=== PATIENT | male | born 1990 | race Caucasian/White ===

== ENCOUNTER 2016-12-25 14:25 | Inpatient (IN) | payer OTHER ==
--- NOTE | ~2016-12-25 | HP ---
Unit #: [id number] #: [id number] Patient: ARVIN DUNNE [id number] [address] [place], [place] [address] [id number] MR#: [id number] NAME: ARVIN DUNNE ROOM: 241 Age: 26 Sex: M Admission Date: 12/25/2016 : 1990 Attending Physician: Ngozi Luke M.D. Primary Care Physician: No Primary Care Physician HISTORY AND PHYSICAL CHIEF COMPLAINT Low back pain from sleeping on futon. HPI The patient is a 26-year-old male with no significant past medical history who presented to the emergency department for evaluation of the above. The patient states that he has had a 1-2-month history of worsening low back pain. He states the pain is in his lower back. He describes it as throbbing. It is exacerbated by movement and standing. There are no alleviating factors. He denies any similar pain. He attributed the pain to "sleeping on futon." He denies any fever. He has had an occasional cough. He states that the pain also radiates to his abdomen. He has had associated vomiting. He reports 2-3 bouts of nonbloody emesis within the past 24 hours. He has had constipation, although his last bowel movement was today. He also reports an approximate 25-pound weight loss over the past three months. In the emergency department, a CT of the abdomen and pelvis was done and showed a large retroperitoneal mass concerning for malignancy. He is being admitted to [facility] for evaluation and further treatment. PAST MEDICAL HISTORY No hospitalizations. PAST SURGICAL HISTORY None. SOCIAL HISTORY The patient is currently living with a friend. He smokes a 1/2 pack of cigarettes daily. He also reports marijuana use. He works at [employer]. FAMILY HISTORY Notable for his mother dying at the age of 50 of bone malignancy. His dad has asthma. ALLERGIES No allergies are listed. HOME MEDICATIONS None. REVIEW OF SYSTEMS Unit #: [id number] #: [id number] Patient: ARVIN DUNNE A complete review of systems is negative, except as indicated in HPI. 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 The mass is intimately involved with the left psoas muscle. CT with contrast was recommended and done. The CT with contrast redemonstrated the mass. Mass effect upon the aorta, left kidney, and left renal artery was also noted. LABORATORY: Urinalysis notable for 2+ protein. Urine tox screen positive for marijuana. Comprehensive metabolic panel essentially normal. Lipase is 23. Complete blood count notable for white blood cell count of 11.4 and hemoglobin is 11.8. PHYSICAL EXAMINATION VITAL SIGNS: Temperature is 97.9, pulse 92, respirations 16, blood pressure 122/80, and oxygen saturation 100% on room air. GENERAL: The patient is a very pleasant, male who is awake and alert in no acute distress. HEENT: The head is atraumatic. Mucous membranes are moist. NECK: Supple. Trachea is midline. CARDIOVASCULAR: Regular rate and rhythm. LUNGS: Clear to auscultation bilaterally with no increased work of breathing. ABDOMEN: Soft. He is tender to palpation throughout. Bowel sounds are present in all four quadrants. EXTREMITIES: Nontender with no pedal edema. NEUROLOGIC: The patient is awake and alert. He follows commands. PSYCH: The patient is somewhat anxious, but cooperative. SKIN: Skin of examined areas is warm and dry. ASSESSMENT The patient is a 26-year-old male with: 1. Retroperitoneal mass concerning for malignancy, sarcoma versus lymphoma versus other. 2. Nausea and vomiting. 3. Weight loss. The patient reports about a 25-pound weight loss over the past 3 months. 4. Tobacco abuse. PLAN 1. Admit for observation to med/surg. 2. NPO after midnight for possible procedure. 3. Normal saline at 125 mL/hour. 4. P.R.N. Toradol. 5. P.R.N. Zofran. 6. Consult Dr. Coto regarding retroperitoneal mass. 7. TSH. 8. Repeat labs in the morning. 9. SCDs for DVT prophylaxis. 10. Additional workup and consultants based on above. Unit #: [id number] #: [id number] Patient: ARVIN DUNNE Dictated by Thao Louise TD: 12/26/2016 06:54 JOB #: [id number] HISTORY AND PHYSICAL Page 1 of 1 X Ngozi Luke MD HISTORY AND PHYSICAL
--- NOTE | ~2016-12-25 | DS ---
Unit #: [id number] #: [id number] Patient: ARVIN CHAND [id number] [address] [place], [place] [address] [id number] I MR#: [id number] NAME: ARVIN CHAND ROOM: 241 Age: 26 Sex: M Admission Date: 12/25/2016 : 1990 Discharge Date: 12/27/2016 Attending Physician: Dia Ferrera M.D. Primary Care Physician: No Primary Care Physician DISCHARGE SUMMARY PRINCIPAL DIAGNOSES 1. Left-sided retroperitoneal mass with pending pathology. 2. Bilateral noncalcified pulmonary nodules concerning for underlying metastatic disease. 3. Tobaccoism. 4. Marijuana use. 5. Normocytic anemia. 6. Mild protein malnutrition. CONSULTANTS Dr. Coto, Oncology. PROCEDURES 1. CT-guided needle biopsy of left retroperitoneal mass, again, pathology is pending. 2. CT of the chest with contrast on December 26, 2016, with noncalcified bilateral pulmonary nodules, the largest in the posterior medial left lower lobe measuring 11 mm. Air density seen in the posterior margin of left retroperitoneal mass consistent with recent biopsy. 3. CT of the abdomen and pelvis without contrast on December 25, 2016, with the large retroperitoneal mass still left of midline. 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 There is mass effect along the kidney, aorta and pancreas and involving the left psoas muscle. The mass displaces the aorta, left kidney, and again pancreas. 4. CT of the abdomen and pelvis with contrast on December 25, 2016, again with large left retroperitoneal mass with mass effect in the abdominal aorta. Malignant appearance is noted. CLINICAL HISTORY AND HOSPITAL COURSE Mr. Chand is a nice 26-year-old male who presents to the emergency department with complaints of back pain. This has been associated with weight loss. Please refer to the H and P for further details. The patient underwent CT scan of the abdomen and pelvis initially without and subsequently with contrast revealing a large left-sided retroperitoneal mass. Patient was admitted for further evaluation. Dr. Coto was consulted and patient underwent biopsy of the retroperitoneal mass. Official pathology is currently pending, but discussion with Dr. Coto indicates that this may represent a germ-cell tumor. Patient is going to have some further blood work in addition to a testicular ultrasound done later today, and subsequently will be discharged home for further evaluation. Unit #: [id number] #: [id number] Patient: ARVIN CHAND I will note, patient will undergo CT scan of the chest to evaluate for metastases which appear to be present. Again, treatment will depend on pathology. The patient will be discharged home today. DISCHARGE CONDITION Stable. DISCHARGE STATUS Discharged to home. DISCHARGE MEDICATIONS Ibuprofen 200 mg 3-4 tablets p.o. q.8 hours, p.r.n. for pain. DISCHARGE INSTRUCTIONS Patient is to refrain from any further tobacco use or marijuana use, and can follow a regular diet. Follow up with Dr. Coto next week. Dictated by... Dia Ferrera M.D. KIMI/sae TD: 12/27/2016 23:44 JOB #: [id number] DISCHARGE SUMMARY Page 1 of 1 X Dia Ferrera MD X DISCHARGE SUMMARY
--- NOTE | ~2016-12-25 | US115 ---
[facility] A Service of [facility] & [facility] RADIOLOGY TEXT RESULTS PATIENT: ARVIN DUNNE LOCATION: C2A 241-01 : [birth year] UNIT #: [id number] AGE: [address]: Dia Ferrera MD SEX: M ORDER DR: [id number] [facility] [address] [facility] [place], [place] [address] [id number] I MR#: [id number] Acc #: [id number] NAME: ARVIN DUNNE : 1990 SEX: M STUDY DATE/TIME: 12/27/2016 13:24 UNIT: C2A ROOM: 241 STUDY DESCRIPTION: US Scrotum and Contents Attending Physician: Dia Ferrera M.D. Ordering Physician: Miller Coto M.D. Primary Care Physician: No Primary Care Physician MEDICAL IMAGING REPORT This report is preliminary unless electronic signature is present EXAM Testicular ultrasound HISTORY This patient was found to have a large retroperitoneal mass on the left on December 25, 2016. He has had bilateral testicular pain for 2 days. TECHNIQUE Pérez-scale color Doppler and spectral Doppler waveform analysis was performed through the scrotum. FINDINGS Patient's right testicle is normal in appearance it is homogeneous in echotexture with exception of 2 hyperechoic areas which may reflect small calcifications. No suspicious testicular masses are seen. On the right normal color-Doppler flow is seen within the right testicle. Right epididymis is also normal in appearance. Patient's left testicle I think overall is somewhat heterogeneous in echotexture with a more focal area of decreased attenuation seen which measured up to 4.0 x 0.8 x 0.7 cm. Normal color-Doppler flow is seen within the left testicle. Some additional tiny hyperechoic areas are seen which may reflect some calcifications. I think the left epididymis is probably within normal limits. Patient may have a left sided varicocele but this is difficult to fully evaluate on the submitted images. IMPRESSION 1. Overall heterogeneous appearance to the left testicle with a focal area of decreased attenuation seen measuring up to 1.0 x 0.8 x 0.7 cm. 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 2. Right testicle appears unremarkable with the exception of perhaps two tiny microcalcifications. Normal color-Doppler flow is STS. [facility] A Service of [facility] & [facility] RADIOLOGY TEXT RESULTS PATIENT: ARVIN DUNNE LOCATION: [place] [address] : [birth year] UNIT #: [id number] AGE: [address]: Dia Ferrera MD SEX: M ORDER DR: seen within both testicles. Dictated by... Martha Cerda M.D. THIS IS AN ELECTRONICALLY VERIFIED REPORT Martha Cerda M.D. at 12/28/2016 5:54 PM AFF/rnr TD: 12/27/2016 16:31 JOB #: [id number] MEDICAL IMAGING REPORT Page 1 of 1 COPY
--- NOTE | ~2016-12-25 | CT2 ---
[facility] A Service of [facility] RADIOLOGY TEXT RESULTS PATIENT: ARVIN DUNNE LOCATION: [facility] 241- : 89 UNIT #: [id number] AGE: [address]: Dia Ferrera MD SEX: M ORDER DR: [id number] [facility] [address] [facility]. [place], [place] [address] [id number] I MR#: [id number] Acc #: [id number] NAME: ARIVN DUNNE : 1990 SEX: M STUDY DATE/TIME: 12/25/2016 17:38 UNIT: [facility] ROOM: 241 STUDY DESCRIPTION: CT Abd and Pelv W Cont Attending Physician: Ngozi Luke M.D. Ordering Physician: Kelle Aggarwal P.A.-C. MEDICAL IMAGING REPORT This report is preliminary unless electronic signature is present EXAM CT abdomen and pelvis with contrast INDICATIONS Abnormal finding diagnostic imaging of the abdomen. Retroperitoneal mass on unenhanced CT earlier today. Further characterization. TECHNIQUE Contrast-enhanced CT of the abdomen and pelvis. This CT exam was performed with one or more of the following radiation dose reduction techniques: automatic exposure control, adjustment of mA and/or kV according to patient size, and iterative reconstruction. COMPARISON Unenhanced CT from earlier on the same day. FINDINGS ABDOMEN WITH CONTRAST: The included lung bases clear. The liver and spleen are unremarkable. Right adrenal gland, pancreas and gallbladder unremarkable. The bowel loops are non-dilated. There is a large heterogeneously enhancing mass in the left retroperitoneum. The mass is positioned just below the level of the left renal artery which is elevated by the mass. Mass partially surrounds the aorta. The mass measures 7.9 x 8.2 cm. Thyroid mass effect on the abdominal aorta. There is superior elevation of the left renal artery which remains patent. There is involvement of the left renal vein. There is indistinctness of the mass in the left psoas muscle suspicious for involvement. The mass has some mass effect on the left kidney but no clear involvement. The mass is separate from the left adrenal gland. [facility] A Service of [facility] RADIOLOGY TEXT RESULTS PATIENT: ARVIN DUNNE LOCATION: A 241-01 : [birth year] UNIT #: [id number] AGE: [address]: Dia Ferrera MD SEX: M ORDER DR: PELVIS WITH CONTRAST: No pelvic mass or fluid. No aggressive appearing bone lesion. IMPRESSION 1. Large left retroperitoneal mass with mass effect on the abdominal aorta and mild mass effect on the left kidney. This has a malignant appearance and considerations include retroperitoneal sarcoma, as well as lymphoma. The mass elevates the left renal artery which remains patent but involvement is difficult to entirely exclude. There is involvement of the left renal vein, and probably involvement of the psoas muscle on the left. No clear involvement of the left adrenal gland. 2. No convincing evidence for distant metastatic disease in the abdomen or pelvis. Dictated by... Ruslan Albarran M.D. THIS IS AN ELECTRONICALLY VERIFIED REPORT Ruslan Albarran M.D. at 12/26/2016 2:30 PM EED/pcl TD: 12/25/2016 23:16 JOB #: [id number] MEDICAL IMAGING REPORT Page 1 of 1 COPY
--- NOTE | ~2016-12-25 | CT134 ---
[facility] A Service of [facility] RADIOLOGY TEXT RESULTS PATIENT: ARVIN DUNNE LOCATION: [facility] 241- : 89 UNIT #: [id number] AGE: [address]: Dia Ferrera MD SEX: M ORDER DR: [id number] [facility] [address] [facility]. [place], [place] [address] [id number] I MR#: [id number] Acc #: [id number] NAME: ARVIN DUNNE : 1990 SEX: M STUDY DATE/TIME: 12/26/2016 11:15 UNIT: [facility] ROOM: [facility] STUDY DESCRIPTION: CT Guide Attending Physician: Dia Ferrera M.D. Ordering Physician: Miller Coto M.D. Primary Care Physician: Primary Care Physician No MEDICAL IMAGING REPORT This report is preliminary unless electronic signature is present EXAM CT-guided retroperitoneal mass biopsy CLINICAL HISTORY Newly diagnosed retroperitoneal mass. PROCEDURE Informed consent was obtained from the patient. The skin site was selected with CT guidance and marked. Fentanyl and Versed were administered for IV conscious sedation with hemodynamic monitoring provided by the nursing staff throughout the procedure. Total sedation time approximately 15 minutes. Selected skin site was sterilely prepped and draped and locally anesthetized and in INRAD needle gun was used. Guide needle positioning was confirmed with CT and core specimens were obtained and sent both in formalin and Hanks solution for cytopathologic and flow cytometric evaluation. There were no immediate complications and the patient tolerated the procedure well. Prebiopsy images revealed persistent cortical enhancement of the left kidney. Review of the CT examination showed a subtle asymmetry and renal enhancement and compromise of the renal vein which is likely the leno of the abnormal density in the left renal cortex. IMPRESSION Successful CT-guided core biopsy of a left retroperitoneal mass without complication, conscious sedation as above. Prebiopsy images demonstrate persistent enhancement and/or density in the cortex of the left kidney, likely corresponding to left renal vein compromise and subtlely delayed left renal enhancement likely on that [facility] A Service [facility] RADIOLOGY TEXT RESULTS PATIENT: ARVIN DUNNE LOCATION: [facility] 241-01 : [birth year] UNIT #: [id number] AGE: [address]: Dia Ferrera MD SEX: M ORDER DR: basis demonstrated on the CT abdomen and pelvis of 12/25/2016. Dictated by... Dalton Morris M.D. THIS IS AN ELECTRONICALLY VERIFIED REPORT Dalton Morris M.D. at 12/28/2016 2:19 PM TEV/delphine TD: 12/26/2016 21:34 JOB #: [id number] MEDICAL IMAGING REPORT Page 1 of 1 COPY
--- NOTE | ~2016-12-25 | CT55 ---
[facility] A Service of [facility] & [facility] RADIOLOGY TEXT RESULTS PATIENT: ARVIN DUNNE LOCATION: C2A 241-01 : [birth year] UNIT #: [id number] AGE: [address]: Dia Ferrera MD SEX: M ORDER DR: [id number] [facility] [address] [facility]. [place], [place] [address] [id number] I MR#: [id number] Acc #: [id number] NAME: ARVIN DUNNE : 1990 SEX: M STUDY DATE/TIME: 12/26/2016 11:37 UNIT: [facility] ROOM: [facility] STUDY DESCRIPTION: CT Chest W Con Attending Physician: Dia Ferrera M.D. Ordering Physician: Miller Coto M.D. Primary Care Physician: No Primary Care Physician MEDICAL IMAGING REPORT This report is preliminary unless electronic signature is present EXAM CT chest with contrast, 12/26/2016. HISTORY 26-year-old male with retroperitoneal mass seen on CT abdomen and pelvis without contrast from 12/26/2016. Shortness of breath today for approximately [address] abdomen and pelvis with contrast 12/27/2015. CT-guided retroperitoneal mass biopsy 12/26/2016. PROCEDURE 5-mm axial images through the chest after IV contrast administration. Sagittal and coronal reformatted images were obtained. This CT exam was performed with one or more of the following radiation dose reduction techniques: automatic exposure control, adjustment of mA and/or kV according to patient size, and iterative reconstruction. FINDINGS No pathologically enlarged lymph nodes are seen within the chest. No pericardial effusion or pleural effusion. Heart size within normal limits. A noncalcified nodule in the posteromedial left lower lobe (series 6 image 34) measures 1.1 cm. 3-mm nodule is located anteriorly within the right upper lobe (series 6 image 17). 3-mm nodule is located within the right middle lobe (series 6 image 34). There are 2 2-mm noncalcified nodules within the right lower lobe (series 6 image 32 and 33). 4-mm pleural-based nodule is present posteriorly within the right lower lobe (image 34). No acute or suspicious osseous abnormalities are identified. [facility]. [facility] A Service of [facility] & [facility] RADIOLOGY TEXT RESULTS PATIENT: ARVIN DUNNE LOCATION: C2A 241-01 : [birth year] UNIT #: [id number] AGE: [address]: Dia Ferrera MD SEX: M ORDER DR: There is no pneumothorax or acute-appearing lung consolidation. Large left retroperitoneal mass is redemonstrated. Some air is seen along the posterior margin of the retroperitoneal mass related to CT-guided percutaneous biopsy that occurred earlier today. IMPRESSION 1. Noncalcified bilateral pulmonary nodules, as described above, the largest located in the posteromedial left lower lobe measuring nearly 11 mm. Findings are highly suspicious for pulmonary metastatic disease. The 11-mm nodule may be amenable to CT-guided biopsy, if deemed appropriate for this patient. 2. Air density is seen along the posterior margin of the left retroperitoneal mass, likely related to CT-guided percutaneous biopsy earlier today. 3. No acute airspace disease or acute chest findings. Dictated by... Yamini Molina M.D. THIS IS AN ELECTRONICALLY VERIFIED REPORT Yamini Molina M.D. at 12/26/2016 5:28 PM Sheila TD: 12/26/2016 14:53 JOB #: [id number] MEDICAL IMAGING REPORT Page 1 of 1 COPY
--- NOTE | ~2016-12-25 | CO ---
Unit #: [id number] #: [id number] Patient: ARVIN DUNNE [id number] [address] [address] [id number] MR#: [id number] NAME: ARVIN DUNNE ROOM: 241 Age: 26 Sex: M Admission Date: 12/25/2016 : 1990 Attending Physician: Dia Ferrera M.D. CONSULTATION REPORT CHIEF COMPLAINT Large retroperitoneal mass and weight loss. HISTORY OF PRESENT ILLNESS This is a 26-year-old male who developed back pain and abdominal pain about two months ago. It has gradually worsened. Patient has also had nausea, vomiting, and dry heaves. During the last two months, he has lost about 30 pounds. Patient had a CT of the abdomen on December 25, 2016. There is a 7.9 x 8.2 mass just below the left renal artery, and it is surrounding the aorta. CBC showed a WBC of 11.1, hemoglobin 11.3, MCV 84, and platelets 241,000. His creatinine is 1.1, and LFTs are normal. Tumor markers are pending. CEA is 1.5 normal. At present, he is anxious and worried about malignancy. PAST MEDICAL HISTORY Large retroperitoneal mass. No other medical conditions. PAST SURGICAL HISTORY None. ALLERGIES None. CURRENT MEDICATIONS 1. Zofran. 2. Ketoralac. 3. Versed. SOCIAL HISTORY Patient has been smoking a half pack per day for more than 10 years. He used to drink but quit. He works at [employer]. FAMILY HISTORY Mother had some sort of cancer, exact type unknown. REVIEW OF SYSTEMS CONSTITUTIONAL: No fever, no chills, no sweats, no weight loss. EYES: No visual symptoms. EARS, NOSE AND THROAT: There is no runny nose or sore throat or difficulty hearing. CARDIOVASCULAR: No chest pain. No shortness of breath. No palpitations. Unit #: [id number] #: [id number] Patient: ARVIN DUNNE No orthopnea. No PND. RESPIRATORY: No cough. No wheezing. No hemoptysis. GASTROINTESTINAL: As mentioned above. No diarrhea, constipation, hematochezia or melena. ABDOMEN: As mentioned above. GENITOURINARY: No urinary frequency, hesitancy or urgency. No blood in the urine. MUSCULOSKELETAL: No muscle or joint pain. NEUROLOGIC: No headache. No numbness or tingling. No weakness. No seizure. PSYCHIATRIC: No anxiety, depression or mood disturbance. ENDOCRINE: No excessive urination or thirst. DERMATOLOGIC: No rash or change in the skin. ALLERGIC/IMMUNOLOGIC: No symptoms. HEMATOLOGIC/LYMPHATIC: Denies any symptoms. PHYSICAL EXAMINATION VITAL SIGNS: Afebrile, pulse 76, respirations 16, O2 saturations on room air 98%, and blood pressure 125/82. GENERAL: Patient is comfortable. ECOG is 0. The patient is pleasant. HEENT: Moist mucosa. Pupils equally reactive to light. Extraocular muscles intact. Sclerae anicteric. No obvious bleeding from nasal mucosa or oral mucosa. Scalp normal. Hearing normal. NECK: No JVD. No lymphadenopathy. LYMPHATIC/HEMATOLOGIC: There is no palpable adenopathy in the neck, axilla or inguinal area. CARDIOVASCULAR: S1, S2. Regular rate and rhythm. No S3 or S4. RESPIRATORY: Chest symmetrical, normal. Clear to auscultation bilaterally. No wheezes, no rales, no rhonchi. No dullness to percussion. ABDOMEN/GASTROINTESTINAL: Abdomen is soft, nontender, nondistended. No hepatosplenomegaly. EXTREMITIES: There is no clubbing, no cyanosis, no edema. No varicose veins. NEUROLOGICAL: Patient is alert, awake and oriented x3. Cranial nerves II-XII are intact. Sensory grossly intact. Motor is 4/5 in all four extremities. Gait is normal. Station is normal. Language is normal. Memory is normal. DTRs +2 in all four extremities. MUSCULOSKELETAL: No joint swelling. No bony tenderness. No muscle tenderness. SKIN: No petechiae, no rash, no ecchymosis. PSYCHIATRIC: No anxiety. No delusions or hallucinations. There is no agitation. Eye contact is normal. Affect is appropriate. There is no flight of ideas. DIAGNOSTIC STUDIES LABORATORY: As mentioned above. IMAGING: As mentioned above. ASSESSMENT This is a 26-year-old male who has an almost 9 cm retroperitoneal mass. It is surrounding the aorta. He has lost 30 pounds in three months. DISCUSSION I had an extensive discussion with patient. According to Radiology, this could be a sarcoma or lymphoma. At present, his CBC appears normal. PLAN Unit #: [id number] #: [id number] Patient: ARVIN DUNNE I will get a CT-guided biopsy of the retroperitoneal mass today. I am going to get a CT of the chest. I am going to present the case to the tumor board tomorrow. Dictated by... Thao Feliz/jose j TD: 12/26/2016 14:22 JOB #: [id number] CC: Josiah Avendaño M.D. CONSULTATION REPORT Page 1 of 1 X Miller Coto MD X CONSULTATION REPORT
--- NOTE | ~2016-12-25 | CT4 ---
[facility] A Service of [facility] RADIOLOGY TEXT RESULTS PATIENT: ARVIN DUNNE LOCATION: [facility] 241-01 : 89 UNIT #: [id number] AGE: [address]: Dia Ferrera MD SEX: M ORDER DR: [id number] [facility] [address] [facility]. [place], [place] [address] [id number] MR#: [id number] Acc #: [id number] NAME: ARVIN DUNNE : 1990 SEX: M STUDY DATE/TIME: 12/25/2016 16:22 UNIT: CFTX ROOM: STUDY DESCRIPTION: CT Abd and Pelv Wo Cont Attending Physician: Kelle Aggarwal P.A.-C. Ordering Physician: Kelle Aggarwal P.A.-C. Primary Care Physician: Loida Primary Care Physician MEDICAL IMAGING REPORT This report is preliminary unless electronic signature is present EXAM Abdomen and pelvis CT no contrast 12/25/2016. INDICATIONS 26-year-old male with low back pain from sleeping on a futon 2 months ago. No history of malignancy or prior surgeries. TECHNIQUE Noncontrasted abdomen and pelvis CT was performed. This CT exam was performed with one or more of the following radiation dose reduction techniques: automatic exposure control, adjustment of mA and/or kV according to patient size, and iterative reconstruction. COMPARISON We have no comparisons. FINDINGS CT ABDOMEN: Exam degraded by noncontrast technique. Included lung bases are clear. No effusion or pericardial effusion. There is a large retroperitoneal mass to the left of midline. It is intimately associated with the psoas musculature along its posterior margin and causes mass effect upon the adjacent left kidney, aorta, and pancreas, displacing them peripherally. The mass measures at least 6.3 x 11.5 x 6.7 cm. There are areas of decreased attenuation centrally within the mass along with faint punctate calcifications. The mass abuts and displaces the aorta anteriorly and to the right, but appears to be separate from the aorta, although this is difficult to confirm with noncontrast technique. The pancreas is displaced anteriorly and the left kidney is displaced laterally and posteriorly. There is some subtle stranding around the superior margin of the mass. 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 Primary differential considerations [facility]. [facility] A Service of [facility] RADIOLOGY TEXT RESULTS PATIENT: ARVIN DUNNE LOCATION: [place] [address] : [birth year] UNIT #: [id number] AGE: [address]: Dia Ferrera MD SEX: M ORDER DR: would include a retroperitoneal sarcoma such as a lipid-poor liposarcoma, a rhabdomyosarcoma or other sarcomatous lesion. A nerve sheath tumor neoplasm is also in the differential. A vascular neoplasm, including a leiomyosarcoma, is in the differential. This could less likely represent a large aortic pseudoaneurysm. Suggest initial further evaluation with contrast-enhanced CT for further characterization and assessment. MRI may eventually be necessary for further characterization, and patient will likely require surgical and oncological referral. With the exception of the associated mass effect from the retroperitoneal mass, the kidneys, adrenal glands and pancreas are unremarkable. There is no radiopaque stone or hydronephrosis of either kidney. No evidence of splenomegaly. The gallbladder is contracted, but otherwise unremarkable. The liver appears within normal limits. There is a small aortocaval lymph node, indeterminate. The left renal vein appears to be draped over the retroperitoneal mass. There is some nonspecific renal stranding on the left. CT PELVIS: Bladder unremarkable. Prostate within normal limits. No free fluid or drainable fluid collection in the pelvis. There is no bowel obstruction. The appendix is normal. No inguinal adenopathy or fluid collection. No suspicious bone lesion. IMPRESSION 1. The examination is abnormal. Results have been discussed with nurse practitioner, Kelle Aggarwal, prior to this dictation. The patient has a large retroperitoneal mass to the left of midline. It measures at least 11.5 x 6.7 cm. 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 There is mass effect upon the adjacent left kidney, aorta, and pancreas, and the mass is intimately involved with the left psoas muscle. Additional differential considerations would potentially include a nerve sheath neoplasm or, less likely, an unusual presentation of an aortic pseudoaneurysm or less likely infection. Further evaluation initially with contrast-enhanced CT of the abdomen and pelvis is recommended for further assessment. 2. As described above, the mass displaces the aorta, left kidney and pancreas peripherally. There is no evidence of splenomegaly or significant additional adenopathy in the abdomen or pelvis to suggest lymphoma, although that technically is a differential consideration, as well. 3. Kidneys demonstrate no hydronephrosis. No radiopaque stone on either side. 4. There is no bowel obstruction. 5. Appendix normal. 6. There is no distinct destructive change of the adjacent osseous structures. No compression fracture. STAT * RESULT [facility]. [facility] A Service of [facility] RADIOLOGY TEXT RESULTS PATIENT: ARVIN DUNNE LOCATION: [place] [address] : [birth year] UNIT #: [id number] AGE: [address]: Dia Ferrera MD SEX: M ORDER DR: Dictated by... Tony Mccallum M.D. THIS IS AN ELECTRONICALLY VERIFIED REPORT Tony Mccallum M.D. at 12/26/2016 9:55 AM Mireya TD: 12/25/2016 17:23 JOB #: [id number] MEDICAL IMAGING REPORT Page 1 of 1 COPY
--- NOTE | ~2016-12-25 | A ---
[facility] Nutrition Therapy DATE: 12/26/16 Patient: ARVIN DUNNE Physician: JACQUIE Address: [address] Room/Bed: [facility] [place] [address], Zip: [place] [address] Admit Date: 12/25/16 Date of : [birth year] Height: 5 11 Weight: 155 70.3 NUTRITIONAL ASSESSMENT: REASON: 5 NUTRITION RISK PT RE: 30# WEIGHT LOSS, ALSO CONSULT RE: WEIGHT LOSS PT IS 26 Y.O. 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 HE GUESSED 155# AT ADMIT Labs: CA+:8.3, NA+:131 Meds: ZOFRAN, NACL I/O & Bowel function: 1500/3 Skin Integrity: TATTOOS NOTED Estimated Nutrition Needs: INCREASED NUTRIENT NEEDS 2' PT UNDERWEIGHT, CURRENT CONDITION, DECREASED PO INTAKE AND APPETITE Assessment: CHART REVIEWED AND EVENTS NOTED. PT SEEN FOR WEIGHT LOSS. PT REPORTS DECREASED PO INTAKE 2' DECREASED APPETITE D/T CHRONIC LOW BACK PAIN PAST 1-2 MONTHS. PT NOTES CONSTIPATION. PT ADDS UBW IS ~170-185#, UNABLE TO REPORT TIME FRAME OF WEIGHT LOSS. PER CHART, A ~25-30# WEIGHT LOSS NOTED IN PAST 3 MONTHS? PER [employer], PT WEIGHED ~185# BACK IN 2012. THIS RD ENCOURAGED ADEQUATE KCAL, PROTEIN AND FLUID INTAKE (3 MEALS + SNACKS DAILY) TO PREVENT FURTHER WEIGHT LOSS/PROMOTE GRADUAL WEIGHT GAIN. PT REPORTED NO DIET QUESTIONS AT THIS TIME. RD TO FOLLOW. Dx: UNINTENTIONAL WEIGHT LOSS R/T DECREASED PO INTAKE/APPETITE, CHRONIC BACK PAIN AEB ?LOW BMI NOTED, WEIGHT LOSS NOTED ABOVE. Intervention: 1. NPO 2. RD CONSULT Monitoring, Evaluation and Goals: 1. ORAL INTAKE; ADVANCE DIET AND CONSUME >50% OF MEALS W/NO C/O N/V/D 2. WEIGHTS; PREVENT FURTHER WEIGHT LOSS; PROMOTE WEIGHT MAINTENANCE IF NORMAL BMI 3. GI; PROMOTE REGULAR BOWEL FUNCTION MONITOR: [facility] Nutrition Therapy DATE: 12/26/16 Patient: ARVIN DUNNE Physician: JACQUIE Address: [address] Room/Bed: [address] [place] [address], Zip: [place] [address] Admit Date: 12/25/16 Date of : [birth year] Height: 5 11 Weight: 155 70.3 -DIET ADVANCEMENT -PO INTAKE/APPETIE -WEIGHTS Recommendations: 1. ONCE MEDICALLY FEASIBLE, BEGIN WITH CLEARS AND ADVANCE DIET TOLERATED TO REGULAR 2. ORDER SAURABH ENSURE SHAKES TID W/MEALS ONCE DIET ADVANCES BEYOND CLEAR LIQUID 3.APPRECIATE FAMILY AND STAFF TO ENCOURAGE ADEQUATE PO INTAKE RD WILL F/U PER PROTOCOL PT IS MODERATELY COMPROMISED Respectfully, DANAE GILLIAM MS, RD, LD Food and Nutritional Services [facility] cc: client file
[~2016-12-25 14:25] MED LIST: ERYTHROMYCIN O3.5 GM OD
[2016-12-25 15:04] LABS: BASOPHIL# 0.1 X10e3 (0-0.3); BASOPHIL% 0.6 % (0-2.5); EOSINOPHIL# 0.1 X10e3 (0-0.7); EOSINOPHIL% 0.5 % (0.0-7.0); HEMATOCRIT 35.4 % (38.0-50.0); HEMOGLOBIN 11.8 gm/dL (13.0-16.0); LYMPHOCYTE# 1.1 X10e3 (1.0-3.5); LYMPHOCYTE% 9.6 % (17.0-45.0); MEAN CELL VOLUME 83.4 FL (83-96); MEAN CORPUSCULAR HEMOGLOBIN 27.8 PG (28-34); MEAN CORPUSCULAR HGB CONC 33.3 g/dL (30-36); MEAN PLATELET VOLUME 7.6 FL (6.5-11.5); MONOCYTE# 1.1 X10e3 (0-1.0); MONOCYTE% 9.3 % (3.0-12.0); NEUTROPHIL# 9.1 X10e3 (1.5-7.1); PLATELET COUNT 278 X10e3 (140-420); RED BLOOD COUNT 4.25 X10e (3.90-5.60); RED CELL DISTRIBUTION WIDTH 12.6 % (11.0-15.5); WHITE BLOOD COUNT 11.4 X10e3 (4.0-10.5)
[2016-12-25 15:12] LABS: DIFF IND NO
[2016-12-25 15:25] LABS: URINE SOURCE CLEAN CATCH
[2016-12-25 15:37] LABS: ALBUMIN SERUM 3.8 g/dL (3.5-5.0); BILIRUBIN, DIRECT 0.1 mg/dL (0.0-0.2); BILIRUBIN,INDIRECT 0.7 mg/dL (0.0-0.9); BILIRUBIN,TOTAL 0.8 mg/dL (0.2-2.0); GLOM FILT RATE Estimated 102.7 mL/min (>60); POTASSIUM 3.5 mmol/L (3.5-5.1); PROTEIN TOTAL SERUM 7.3 g/dL (6.0-8.3)
[2016-12-25 15:38] LABS: URINE APPEARANCE TURBID; URINE BLOOD NEG (NEG); URINE COLOR DK YELLOW; URINE GLUCOSE NEG (NEG); URINE KETONE TRACE (NEG); URINE LEUKOCYTE ESTERASE NEG (NEG); URINE NITRATE NEG (NEG); URINE PH 5.5 (5-8); URINE PROTEIN 2+ (NEG); URINE SPECIFIC GRAVITY 1.031 (1.003-1.035)
[2016-12-25 15:41] LABS: URBCS1 AUWI 0-2 /[HPF] (0-2); URINE BACTERIA AUWI NEG (NEGATIVE); URINE SQUAMOUS EPITHELIAL CELL OCC /[HPF]
[2016-12-25 16:00] LABS: AMPHETAMINE NEG (NEG); BARBITURATES NEG (NEG); BENZODIAZEPINES NEG (NEG); COCAINE NEG (NEG); MARIJUANA POS (NEG); OPIATES NEG (NEG); TRICYCLIC ANTIDEPRESSANTS NEG (NEG); U METHADONE NEG (NEG)
[2016-12-25 16:03] LABS: CULTURE INDICATED? NO
[2016-12-25 16:04] LABS: U HYALINE CASTS AUWI 0-2 /[LPF]
[2016-12-25 16:05] LABS: URINE MUCUS PRESENT
[2016-12-26 04:44] LABS: BASOPHIL# 0.1 X10e3 (0-0.3); BASOPHIL% 0.7 % (0-2.5); EOSINOPHIL# 0.2 X10e3 (0-0.7); EOSINOPHIL% 1.8 % (0.0-7.0); HEMATOCRIT 34.7 % (38.0-50.0); HEMOGLOBIN 11.3 gm/dL (13.0-16.0); LYMPHOCYTE# 2.2 X10e3 (1.0-3.5); LYMPHOCYTE% 19.8 % (17.0-45.0); MEAN CELL VOLUME 84.3 FL (83-96); MEAN CORPUSCULAR HEMOGLOBIN 27.5 PG (28-34); MEAN CORPUSCULAR HGB CONC 32.6 g/dL (30-36); MEAN PLATELET VOLUME 8.3 FL (6.5-11.5); MONOCYTE# 1.2 X10e3 (0-1.0); MONOCYTE% 10.7 % (3.0-12.0); NEUTROPHIL# 7.4 X10e3 (1.5-7.1); PLATELET COUNT 241 X10e3 (140-420); RED BLOOD COUNT 4.12 X10e (3.90-5.60); RED CELL DISTRIBUTION WIDTH 12.8 % (11.0-15.5); WHITE BLOOD COUNT 11.1 X10e3 (4.0-10.5)
[2016-12-26 04:45] LABS: DIFF IND NO
[2016-12-26 04:56] LABS: INR 1.2
[2016-12-26 05:31] LABS: BUN/CREATININE RATIO 8.18; CALCIUM SERUM 8.3 mg/dL (8.4-10.2); CREATININE SERUM 1.1 mg/dL (0.6-1.4); GLOM FILT RATE Estimated 91.5 mL/min (>60); POTASSIUM 3.7 mmol/L (3.5-5.1)
[2016-12-27 06:07] LABS: HEMATOCRIT 32.7 % (38.0-50.0); HEMOGLOBIN 10.7 gm/dL (13.0-16.0); MEAN CELL VOLUME 85.4 FL (83-96); MEAN CORPUSCULAR HGB CONC 32.8 g/dL (30-36); MEAN PLATELET VOLUME 8.6 FL (6.5-11.5); RED BLOOD COUNT 3.83 X10e (3.90-5.60); RED CELL DISTRIBUTION WIDTH 12.7 % (11.0-15.5); WHITE BLOOD COUNT 9.6 X10e3 (4.0-10.5)
[2016-12-27 06:40] LABS: ALBUMIN SERUM 3.1 g/dL (3.5-5.0); BILIRUBIN,TOTAL 0.5 mg/dL (0.2-2.0); CALCIUM SERUM 8.3 mg/dL (8.4-10.2); GLOM FILT RATE Estimated 102.7 mL/min (>60); POTASSIUM 3.7 mmol/L (3.5-5.1); PROTEIN TOTAL SERUM 6.2 g/dL (6.0-8.3)
[2016-12-27] MEDS ORDERED: ADVIL200 M1 PO (14:01)
[2017-01-09] MEDS ORDERED: HYDROCODON-ACE1 EAC7 PO (07:35)
== END 2016-12-27 16:12 | disposition home or self-care (01) | DRG 844 ==
LOC: CED 14:25 → CFTX 14:25 → CED 15:00 → CFTX 15:00 → C2A 19:45 → CEDOF 19:45 → CED 19:51 → C2A 19:51 → CEDOF 19:51 → C2A 20:48
PROVIDERS: Family Medicine; Internal Medicine Hematology; Physician Assistant
PROC: 0WBH3ZX Excision of Retroperitoneum, Percutaneous Approach, Diagnostic (ICD-10-PCS; principal; 2016-12-26)
DX: C48.0 Malignant neoplasm of retroperitoneum (principal); E44.1 Mild protein-calorie malnutrition; F17.210 Nicotine dependence, cigarettes, uncomplicated; R11.2 Nausea with vomiting, unspecified; F12.90 Cannabis use, unspecified, uncomplicated; Z68.21 Body mass index [BMI] 21.0-21.9, adult; R91.8 Other nonspecific abnormal finding of lung field; D64.9 Anemia, unspecified
CPT/HCPCS: 36415; 71260; 74176; 74177; 76870; 77012; 80048; 80053; 80076; 80307; 81003; 82105; 82378; 83615; 83690; 84443; 84702; 85025; 85027; 85610; 86301; 88305; 93976; 96374; 99285; J1885; J2250; J3010; Q9967

== ENCOUNTER → 2017-01-09 | Outpatient (CLI) | payer OTHER ==
[~2017-01-09] MED LIST changes: +ADVIL200 M1 PO; +HYDROCODON-ACE1 EAC7 PO
--- NOTE | ~2017-01-09 | XA91 ---
[facility] A Service of [facility] & [facility] RADIOLOGY TEXT RESULTS PATIENT: ARVIN DUNNE LOCATION: [facility] : 89 UNIT #: [id number] AGE: [address]: Miller Coto MD SEX: M ORDER DR: [id number] [facility] [address]. [place], [place] [address] [id number] O MR#: [id number] Acc #: [id number] NAME: ARVIN DUNNE : 1990 SEX: M STUDY DATE/TIME: 01/09/2017 8:08 UNIT: CIVR ROOM: STUDY DESCRIPTION: XA CVC Tunneled W Port Attending Physician: Miller Coto M.D. Referring Physician: Miller Coto M.D. Ordering Physician: Miller Coto M.D. Primary Care Physician: Loida Primary Care Physician MEDICAL IMAGING REPORT This report is preliminary unless electronic signature is present EXAM Mediport placement. INDICATIONS Left testicular cancer. PROCEDURE Procedure was explained to the patient including risks, benefits, potential complications, potential for alternative forms of treatment. Informed consent was obtained and prior to initiating procedure, a formal time-out procedure was performed. Using all elements of maximum sterile barrier technique including hand hygiene, cap, sterile gowns, gloves and masks, the right neck was prepped with 2% chlorhexidine for cutaneous antisepsis, and covered with a large sterile sheet. The ultrasound probe was covered with a sterile probe cover and sterile gel was applied. Real-time sterile ultrasound guidance was used to localize the right internal jugular vein which was found to be patent and compressible. A hard copy ultrasound image was obtained. After local anesthesia with 1% Xylocaine, the vein was punctured using realtime ultrasound guidance, an 0.018 guidewire was advanced into the superior vena cava under fluoroscopic guidance. Micropuncture sheath was placed and a J-wire was advanced into the inferior vena cava. At this point I turned my attention to creation of port pocket. Skin and subcutaneous tissues of the right anterolateral chest wall were anesthetized with buffered lidocaine and lidocaine with epinephrine. A small skin incision was made. Pocket was created using a combination of blunt and sharp dissection. The port was seated in the pocket secured using 3-0 Vicryl sutures and was tunneled up through the right anterolateral chest wall to the insertion site at the neck. The catheter was measured and trimmed and was advanced through a peel-away sheath into the superior vena cava. Following placement, the catheter flushed and aspirated easily. The deep layer of the port pocket was closed using STS. [facility] A Service of [facility] RADIOLOGY TEXT RESULTS PATIENT: ARVIN DUNNE [facility] : 89 UNIT #: [id number] AGE: [address]: Miller Coto MD SEX: M ORDER DR: interrupted 3-0 Vicryl sutures and a running 4-0 Monocryl suture was used to close the skin. 3 interrupted 4-0 Monocryl sutures were used to close the skin insertion site at the neck and Dermabond was applied to both wounds to act as a dressing. Moderate sedation was provided to the patient. I supervised the patient's nurse and monitored the patient's vital signs for a total of 63 minutes of [id number] time. Patient did receive 10 mg of Versed and 125 mcg of Fentanyl. Total fluoroscopy time 0.4 minutes. AK was 2 mGy. IMPRESSION Successful placement of right internal jugular vein MediPort which terminates in the superior vena cava. This catheter is ready for immediate use. Ultrasound and fluoroscopy were used during placement of the catheter and permanent images were saved. Dictated by... Martha Cerda M.D. THIS IS AN ELECTRONICALLY VERIFIED REPORT Martha Cerda M.D. at 01/10/2017 4:35 PM AFF/bd TD: 01/10/2017 10:01 JOB #: [id number] MEDICAL IMAGING REPORT Page 1 of 1 COPY
[2017-01-09 07:36] LABS: HEMATOCRIT 37.6 % (38.0-50.0); HEMOGLOBIN 12.2 gm/dL (13.0-16.0); MEAN CELL VOLUME 84.5 FL (83-96); MEAN CORPUSCULAR HEMOGLOBIN 27.4 PG (28-34); MEAN CORPUSCULAR HGB CONC 32.5 g/dL (30-36); MEAN PLATELET VOLUME 7.5 FL (6.5-11.5); RED BLOOD COUNT 4.45 X10e (3.90-5.60); WHITE BLOOD COUNT 9.4 X10e3 (4.0-10.5)
[2017-01-09 07:52] LABS: INR 1.1; PARTIAL THROMBOPLASTIN TIME 31.1 SECONDS (23.5-31.3); PROTHROMBIN TIME (PATIENT) 11.4 SECONDS (10.0-11.7)
== END | disposition home or self-care (01) ==
LOC: CIVR 07:06
PROVIDERS: Internal Medicine Hematology
PROC: 02HV33Z Insertion of Infusion Device into Superior Vena Cava, Percutaneous Approach (ICD-10-PCS; principal; 2017-01-09)
DX: C62.12 Malignant neoplasm of descended left testis (principal); Z45.2 Encounter for adjustment and management of vascular access device; R19.09 Other intra-abdominal and pelvic swelling, mass and lump
CPT/HCPCS: 36415; 76937; 77001; 85027; 85610; 85730; C1788; C1894; J0690; J1170; J1642; J2250; J3010

== ENCOUNTER → 2017-02-15 | Outpatient (CLI) | payer OTHER ==
--- NOTE | ~2017-02-15 | CT2 ---
[facility] A Service of [facility] & [facility] RADIOLOGY TEXT RESULTS PATIENT: ARVIN DUNNE LOCATION: [facility] : 89 UNIT #: [id number] AGE: [address]: Ahmet Brito MD SEX: M ORDER DR: [id number] [place] [id number] [facility]. [place], [place] [address] [id number] O MR#: [id number] Acc #: [id number] NAME: ARVIN DUNNE : 1990 SEX: M STUDY DATE/TIME: 02/15/2017 UNIT: [facility] ROOM: STUDY DESCRIPTION: CT Abd and Pelv W Cont Attending Physician: Ahmet Brito M.D. Referring Physician: Ahmet Brito M.D. Ordering Physician: Ahmet Brito M.D. 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 Patient has recently completed chemotherapy this week. Evaluate response to therapy. Patient complains of lower back pain for [address] 12/25/2016 TECHNIQUE Helical dynamic postcontrast images were obtained from the lung bases through the pubic symphysis. Sagittal and coronal reconstructions were performed. Contrast was Isovue-370, 100 mL IV. Total exam DLP 563 mGy-cm. This CT exam was performed with one or more of the following radiation dose reduction techniques: automatic exposure control, adjustment of mA and/or kV according to patient size, and iterative reconstruction. FINDINGS Images through the lung bases are clear. No pulmonary parenchymal nodules are seen. The area of the lung with nodules on chest CT 12/26/2016 is not included in the field of view of this CT abdomen and pelvis. There are no effusions. Images through the abdomen demonstrate a normal appearance to the liver, spleen, pancreas, gallbladder, bile ducts, right adrenal gland, and right kidney. There is again demonstrated a large left retroperitoneal mass that involves the area of the left renal vein and renal artery. This has somewhat low attenuation centrally. This has decreased in size compared to the baseline CT of 12/25/2016. This is likely a pathologic mamadou mass [facility] A Service of [facility] & [facility] RADIOLOGY TEXT RESULTS PATIENT: ARVIN DUNNE [facility] 89 UNIT #: [id number] AGE: [address]: Ahmet Brito MD SEX: M ORDER DR: from metastatic testicular carcinoma, measuring 6.0 x 5.4 x 9.5 cm, previously measuring 8.2 x 7.9 x 12 cm. The left renal artery courses through the superior margin of the mass with soft tissues surrounding the renal artery, but contrast is present and it is patent. It is displaced, but not occluded. The left renal vein is displaced anteriorly and superiorly by the mass. There is a low-density filling defect in the left renal vein where it crosses anterior to the aorta and posterior to the superior mesenteric artery prior to joining the IVC. This could represent flow artifact or tumor thrombus. There is only 1 phase of contrast administration on this study, and it is difficult to determine whether this represents flow artifact or contrast (Image 27). The mass abuts at least 270 degrees of the aorta and is inseparable from the left psoas muscle, similar to prior study. The left kidney enhances normally. There is no excretion from either kidney on this exam. There are small collateral vessels seen in the left perinephric fat and small collateral vessels seen at the superior margin of the mass near the renal artery and renal vein. It is difficult to determine whether these small collateral vessels are arterial or venous, as both the artery and vein are opacified on this study. There is no definite ureterectasis. There is a low-density tubular structure in the left retroperitoneum inferior to the mass that I think it is a small amount of thrombus in the left gonadal vein, which is most likely involved or occluded by the mass in this location. This is felt likely unchanged. There is no new adenopathy or ascites. The stomach, small bowel and colon are normal. There is no evidence of appendicitis. The seminal vesicles and prostate are normal. The bladder appears normal. Bone window images demonstrate normal alignment. There is no disc height loss or fracture. There is no lytic or blastic lesion. There is central disc bulging at L5-S1 similar to prior exam. IMPRESSION 1. 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 The left renal artery is involved with a mass, but is patent. The left renal vein is involved and displaced anteriorly and superiorly. There is a filling defect in the left renal vein as it courses anterior to the aorta which could represent flow artifact or tumor thrombus. 2. No intrinsic liver lesion within the left kidney. Small collateral vessels are seen around the left kidney and superior to the mass around the area of the renal artery and renal vein. Both the renal artery and renal vein are opacified in this study, and I cannot determine whether these are collateral arterial or venous vessels. 3. No new adenopathy is seen. There is no liver lesion. 4. The lung bases are clear. The area of pulmonary nodules seen on prior chest CT is not included in the field of view of this exam. 5. Bone window images demonstrate normal alignment of the lumbar spine. [facility] A Service of [facility] RADIOLOGY TEXT RESULTS PATIENT: ARVIN DUNNE LOCATION: [facility] #: [id number] : 88 UNIT #: [id number] AGE: [address]: Ahmet Brito MD SEX: M ORDER DR: There is stable disc bulging at L5-S1. No lytic or blastic lesions. Dictated by... Sophia Mcintyre M.D. THIS IS AN ELECTRONICALLY VERIFIED REPORT Sophia Micntyre M.D. at 02/15/2017 2:25 PM LENCHO/saumya TD: 02/15/2017 14:10 JOB #: [id number] MEDICAL IMAGING REPORT Page 1 of 1 COPY
[2017-02-15 15:20] LABS: POC - CREATININE 0.96 mg/dL (0.64-1.27); POC - GFR >60.0 mL/min (>60)
== END | disposition home or self-care (01) ==
LOC: CCAT 07:39
PROVIDERS: Internal Medicine Medical Oncology
DX: C62.12 Malignant neoplasm of descended left testis (principal); R19.09 Other intra-abdominal and pelvic swelling, mass and lump; M51.87 Other intervertebral disc disorders, lumbosacral region
CPT/HCPCS: 74177; 82565; J1642; Q9967